=== PATIENT | male | born 1965 | race Caucasian/White ===

== ENCOUNTER 2017-02-19 07:59 | Emergency (ER) | payer OTHER ==
[2017-02-19 08:03] VITALS: RESP 18
[2017-02-19 09:25] LABS: BASO % 0.5 % (0.0-2.0); EOS # 0.5 K/uL (0.0-0.7); EOS % 6.6 % (0.0-4.0); HEMATOCRIT 42.6 % (35.0-51.0); LYMPH % 42.3 % (20.0-40.0); MEAN CELL VOLUME 85.2 fL (80.0-94.0); MEAN CORPUSCULAR HEMOGLOBIN 28.3 pg (27.0-31.0); MEAN CORPUSCULAR HGB CONC 33.2 g/dL (33.0-37.0); MEAN PLATELET VOLUME 8.3 fL (7.2-11.7); MONO # 0.4 K/uL (0.0-0.8); MONO % 5.7 % (0.0-10.0); RED CELL DISTRIBUTION WIDTH 14.5 % (11.5-14.5); WHITE BLOOD COUNT 7.1 K/uL (4.8-10.8)
[2017-02-19 09:30] LABS: CHLORIDE 101 mmol/L (98-107); POTASSIUM 4.3 mmol/L (3.6-5.2); SODIUM 137 mmol/L (132-148)
[2017-02-19 09:32] LABS: GFR AFRICAN-AMERICAN > 60
[2017-02-19 09:33] LABS: ALB/GLOB RATIO 1.4 (1.0-2.1); ALKALINE PHOSPHATASE 67 U/L (38-126); ALT/SGPT 33 U/L (21-72); AST/SGOT 19 U/L (17-59); BILIRUBIN,TOTAL 0.8 mg/dL (0.2-1.3); BLOOD UREA NITROGEN 12 mg/dL (9-20); CARBON DIOXIDE 24 mmol/L (22-30); GLUCOSE,RANDOM 81 mg/dL (75-110); TOTAL PROTEIN 6.9 g/dL (6.3-8.3)
[2017-02-19 09:34] LABS: CALCIUM 8.7 mg/dl (8.6-10.4)
[2017-02-19] MEDS ORDERED: Iodixanol 320 MG/ML 100 ML BOTTLE IV ONE (11:15)
--- NOTE | 2017-02-19 11:29 | C.PDOC ---
History Of Present Illness 51-year-old male presents to the emergency department with complaints of rectal pain and lump in the rectal area which has worsened over the past five weeks. States he was seen by PMD, who prescribed a course of antibiotics two weeks ago. Patient states there has been no improvement. Patient was seen by surgeon Dr Hays yesterday in the office, told him he likely has perirectal abscess. Patient denies fevers, nausea/vomiting, diarrhea, rectal bleeding. PMD Destiny Braun MD. Time Seen by Provider: 02/19/17 08:15 Chief Complaint (Nursing): Abnormal Skin Integrity History Per: Patient History/Exam Limitations: no limitations Onset/Duration Of Symptoms: Days Current Symptoms Are (Timing): Still Present Quality Of Symptoms: Painful Severity: Moderate Past Medical History Reviewed: Historical Data, Nursing Documentation, Vital Signs Vital Signs: Last Vital Signs Temp 97.3 F L 02/19/17 13:04 Pulse 68 02/19/17 13:04 Resp 18 02/19/17 13:04 BP 117/76 02/19/17 13:04 Pulse Ox 99 02/21/17 13:12 - Medical History PMH: No Chronic Diseases Family History: States: No Known Family Hx - Social History Hx Alcohol Use: No Hx Substance Use: No - Immunization History Hx Tetanus Toxoid Vaccination: No Hx Influenza Vaccination: Yes Hx Pneumococcal Vaccination: No Review Of Systems Except As Marked, All Systems Reviewed And Found Negative. Constitutional: Negative for: Fever Cardiovascular: Negative for: Chest Pain Respiratory: Negative for: Cough, Shortness of Breath Gastrointestinal: Positive for: Rectal Pain. Negative for: Nausea, Vomiting, Melena, Hematochezia, Hematemesis Musculoskeletal: Negative for: Back Pain Skin: Negative for: Rash Physical Exam - Physical Exam Appears: Well, Non-toxic, No Acute Distress Skin: Warm, Dry, No Rash Head: Normacephalic Oral Mucosa: Moist Cardiovascular: Rhythm Regular Respiratory: Normal Breath Sounds, No Rales, No Rhonchi, No Wheezing Gastrointestinal/Abdominal: Normal Exam, Bowel Sounds, Soft, No Tenderness Rectal: No Hemorrhoids, Other (At approx 6o'clock: 3cm abscess w/ purulent discharge. Tenderness to palpation, (+) surrounding erythema.) Extremity: Normal ROM Neurological/Psych: Oriented x3 ED Course And Treatment - Laboratory Results Result Diagrams: 02/19/17 09:17 02/19/17 09:17 O2 Sat by Pulse Oximetry: 99 (RA) Pulse Ox Interpretation: Normal - CT Scan/US CT ABD/PELVIS Other Rad Studies (CT/US): Read By Radiologist, Radiology Report Reviewed CT/US Interpretation: Accession No. : [id number]. Patient Name / ID : ELICIA MURILLO / [id number]. Exam Date : 02/19/2017 11:41:39 ( Approved ). Study Comment : Sex / Age : M / 51Y. Creator : Giles Garcia. Dictator : Giles Garcia. Wharf Operator : Internal Sales : Giles Garcia. Approver2 : Report Date : 02/19/2017 12:21:48. My Comment : . PROCEDURE: CT Pelvis with contrast. HISTORY: EVALUATE FOR PERIRECTAL ABSCESS. COMPARISON: None. TECHNIQUE: Contiguous axial images of the pelvis with contrast. Coronal and sagittal reformats generated. This CT exam was performed using one or more of the following dose reduction techniques: Automated exposure control, adjustment of the mA and/or kV according to patient size, and/or use of iterative reconstruction technique. Contrast dose: 100 mL of Visipaque. Radiation dose: Total exam DLP = 280.12 mGy-cm. FINDINGS: BLADDER: Unremarkable. No mass. REPRODUCTIVE ORGANS: Unremarkable. VISUALIZED BOWEL: Scattered colonic diverticulosis are seen without evidence of diverticulitis. The appendix is normal. PERITONEUM: Unremarkable, as visualized. No free fluid. No free air. LYMPH NODES: Unremarkable. No enlarged lymph nodes. VASCULATURE: Unremarkable. BONES: No fracture or focal lesion. OTHER FINDINGS: There are inflammatory changes surrounding the rectum and in the medial aspect of the buttock without evidence of discrete abscess or fluid collection. IMPRESSION: Inflammatory changes surrounding the rectum and medial aspect of the buttock bilaterally without evidence of abscess formation or fluid collection. Colonic diverticulosis without evidence of diverticulitis. No evidence of acute pathology otherwise in the pelvis. Progress Note: Blood work, CT scan pelvis with IV contrast ordered. Patient given IV morphine. Prior to being dicharged, Dr. Longoria came to see patient in ED, requests he be given Clindamycin instead of Bactrim. Rx changed. - Physician Consult Information Physician Contacted: Omi Burrell Outcome Of Conversation: Surgical residents came to evaluate patient at bedside and discussed patient with Dr. Burrell. They drained perirectal abscess at bedside & packed it, recommend Bactrim Rx. Patient to follow up with surgeon in 2 weeks in the office. Disposition Counseled Patient/Family Regarding: Studies Performed, Diagnosis, Need For Followup, Rx Given - Disposition Referrals: Omi Burrell MD [Staff Provider] - Destiny Braun MD [Staff Provider] - Disposition: HOME/ ROUTINE Disposition Time: 13:10 Condition: STABLE Additional Instructions: FOLLOW UP WITH YOUR DOCTOR IN 1-2 DAYS FOLLOW UP WITH DR BURRELL IN TWO WEEKS USE ANTIBIOTICS UNTIL FINISHED RETURN TO ER IF SYMPTOMS WORSEN Prescriptions: Clindamycin [Cleocin] 300 mg PO Q6 #21 cap Acetaminophen with Codeine [Tylenol with Codeine #3 Tablet] 1 each PO Q6 PRN # 15 tablet PRN Reason: pain Instructions: Rectal Abscess (ED) Print Language: KHMER - POA Present On Arrival: None - Clinical Impression Clinical Impression: Perirectal abscess - Scribe Statement The provider has reviewed the documentation as recorded by the Madison Tate All medical record entries made by the Alexisibalexis were at my direction and personally dictated by me. I have reviewed the chart and agree that the record accurately reflects my personal performance of the history, physical exam, medical decision making, and the department course for this patient. I have also personally directed, reviewed, and agree with the discharge instructions and disposition.
--- NOTE | 2017-02-19 12:23 | CT ---
PROCEDURE: CT Pelvis with contrast HISTORY: EVALUATE FOR PERIRECTAL ABSCESS COMPARISON: None. TECHNIQUE: Contiguous axial images of the pelvis with contrast. Coronal and sagittal reformats generated. This CT exam was performed using one or more of the following dose reduction techniques: Automated exposure control, adjustment of the mA and/or kV according to patient size, and/or use of iterative reconstruction technique. Contrast dose: 100 mL of Visipaque. Radiation dose: Total exam DLP = 280.12 mGy-cm. FINDINGS: BLADDER: Unremarkable. No mass. REPRODUCTIVE ORGANS: Unremarkable. VISUALIZED BOWEL: Scattered colonic diverticulosis are seen without evidence of diverticulitis. The appendix is normal. PERITONEUM: Unremarkable, as visualized. No free fluid. No free air. LYMPH NODES: Unremarkable. No enlarged lymph nodes. VASCULATURE: Unremarkable. BONES: No fracture or focal lesion. OTHER FINDINGS: There are inflammatory changes surrounding the rectum and in the medial aspect of the buttock without evidence of discrete abscess or fluid collection IMPRESSION: Inflammatory changes surrounding the rectum and medial aspect of the buttock bilaterally without evidence of abscess formation or fluid collection. Colonic diverticulosis without evidence of diverticulitis. No evidence of acute pathology otherwise in the pelvis.
[2017-02-19] MEDS ORDERED: Lidocaine 1%/Epinephrine 1:100000 30 ml vial IJ STA (12:31)
[2017-02-19] MEDS ORDERED: Lidocaine 2% w Epi 1:100,000 Inj IJ ONE (12:36)
[2017-02-19 13:04] VITALS: BP 117/76; PULSE 68; TEMP 97.3
[2017-02-19 13:08] VITALS: O2SAT 99
[2017-02-19] MEDS ORDERED: Tmp-Smz 800 mg-160 mg DS Tab PO STA (13:08)
[2017-02-19] MEDS ORDERED: Tmp-Smz 800 mg-160 mg DS Tab ONE (13:20)
--- NOTE | 2017-02-19 13:45 | CP.PCM.PN ---
Subjective - Date & Time of Evaluation Date of Evaluation: 02/19/17 Time of Evaluation: 13:42 - Subjective Subjective: See Procedural note Objective - Vital Signs/Intake and Output Vital Signs (last 24 hours): Temp Pulse Resp BP Pulse Ox 97.3 F L 68 18 117/76 99 02/19/17 13:04 02/19/17 13:04 02/19/17 13:04 02/19/17 13:04 02/19/17 13:36 - Labs Labs: 02/19/17 09:17 02/19/17 09:17 PT 11.4 SECONDS (9.7-12.2) 02/19/17 09: INR 1.0 02/19/17 09:17 APTT 30 SECONDS (21-34) 02/19/17 09:17 Incision and Drainage - Time Time Performed: 13:00 - Time Out Time Out: Side verified, Site verified, Patient ID confirmed, Sterile procedures obs. - Procedure Procedure-Incision & Drainage: Incision and Drainage Perirectal abscess - Consent obtained Consent obtained: Written - Performed by Performed by: Mid-level Provider - Indications Indications: Cutaneous abscess - Contraindications Contraindications: None - Location Location: Perirectal abscess - Anesthetic Technique Anesthetic Technique: Local, Intravenous pain meds - Anesthetic Anesthetic: Lidocaine 1% w/epi - Procedure Procedure: Usual prep and drape, cm incision (3), # scalpel used (11), Explored for loculations, Irrigated, Packed with sterile gauze - Drained Drained: ml pus (2) - Post-procedure Post procedure: Dressed - Complications Complications: None - Patient tolerated procedure Patient tolerated procedure: Well
--- NOTE | 2017-02-21 12:51 | CP.PCM.CON ---
<Tony Simpson - Last Filed: 02/21/17 12:45> History of Present Illness - History of Present Illness History of Present Illness: General Surgery Consult done on 02/19/17 Re: Perirectal abscess HPI: 51M presented to ED C/O worsening rectal pain x 5 weeks. Pt has had a lump in the rectal area that drains pus and then fills up again. He was seen by his PMD who gave him Abx 2 weeks ago with minimal relief. Pt was seen by Dr Wells yesterday, who told him that he has a probable rectal abscess. Denies F/C, N/V/D, BRBPR or any other symptoms. PMH: DM PSH: Denies SH: + tobacco use, denies EtOH and drug use All: NKDA Meds: Metformin Review of Systems - Review of Systems All systems: reviewed and no additional remarkable complaints except (as per HPI ) Past Patient History - Infectious Disease Hx of Infectious Diseases: None - Past Social History Smoking Status: Light Smoker < 10 Cigarettes Daily - ENDOCRINE/METABOLIC Hx Diabetes Mellitus Type 2: Yes - PSYCHIATRIC Hx Substance Use: No - SURGICAL HISTORY Hx Surgeries: No - ANESTHESIA Hx Anesthesia: No Meds Home Medications: Home Medication List Medication Instructions Recorded Confirmed Type Acetaminophen with Codeine 1 each PO Q6 PRN #15 tablet 02/19/17 Rx [Tylenol with Codeine #3 Tablet] Clindamycin [Cleocin] 300 mg PO Q6 #21 cap 02/19/17 Rx Allergies/Adverse Reactions: Allergies Allergy/AdvReac Type Severity Reaction Status Date / Time No Known Allergies Allergy Verified 02/19/17 08:04 Physical Exam - Constitutional Appears: Non-toxic, No Acute Distress - Head Exam Head Exam: ATRAUMATIC, NORMOCEPHALIC - Eye Exam Eye Exam: EOMI. absent: Scleral icterus - ENT Exam ENT Exam: Mucous Membranes Moist Additional comments: trachea midline - Respiratory Exam Respiratory Exam: NORMAL BREATHING PATTERN. absent: Respiratory Distress - Cardiovascular Exam Cardiovascular Exam: RRR, +S1, +S2 - GI/Abdominal Exam GI & Abdominal Exam: Soft. absent: Tenderness - Rectal Exam Additional comments: posterior midline bump with TTP and draining pus - Extremities Exam Extremities exam: Negative for: calf tenderness, pedal edema - Back Exam Back exam: absent: CVA tenderness (L), CVA tenderness (R) - Neurological Exam Neurological exam: Alert, Oriented x3 - Psychiatric Exam Psychiatric exam: Normal Affect, Normal Mood - Skin Skin Exam: Dry, Warm Results - Vital Signs Recent Vital Signs: Last Vital Signs Temp 97.3 F L 02/19/17 13:04 Pulse 68 02/19/17 13:04 Resp 18 02/19/17 13:04 BP 117/76 02/19/17 13:04 Pulse Ox 99 02/19/17 13:36 - Labs Result Diagrams: 02/19/17 09:17 02/19/17 09:17 - Imaging and Cardiology CT scan - pelvis Status: Image reviewed by me, Report reviewed by me Assessment & Plan - Assessment and Plan (Free Text) Assessment: 51M with perirectal abscess Plan: I&D at bedside, see other note PO abx Remove packing tomorrow Ok to shower tomorrow. F/U with Dr. Wells in 2 weeks D/W Dr. Russell Simpson PGY3 <Omi Wells B - Last Filed: 02/21/17 13:23> Results - Vital Signs Recent Vital Signs: Last Vital Signs Temp 97.3 F L 02/19/17 13:04 Pulse 68 02/19/17 13:04 Resp 18 02/19/17 13:04 BP 117/76 02/19/17 13:04 Pulse Ox 99 02/21/17 13:12 - Labs Result Diagrams: 02/19/17 09:17 02/19/17 09:17 Attending/Attestation - Attestation I have personally seen and examined this patient.: Yes I have fully participated in the care of the patient.: Yes I have reviewed all pertinent clinical information: Yes Notes (Text): 02/21/17 13:22 Pt was seen and examined at bedside on 02/19/17 Agree with above note and assessment. Pt with Perianal abscess I & D at bedside Consent Plan d.w pt in detail Risk and benefit explained in detail.
--- NOTE | 2017-02-22 11:18 | OP ---
PROCEDURE DATE: 02/19/2017 SURGEON: Omi Wells M.D. COMPUTER FORENS[employer] EXAMINER: Tony Simpson, PGY-3 resident. PREOPERATIVE DIAGNOSIS: Perianal abscess POSTOPERATIVE DIAGNOSIS: Perianal abscess PROCEDURE DONE: I & D of Perianal abscess ANESTHESIA: Local anesthesia. ESTIMATED BLOOD LOSS: Around 5 mL. DRAINS: None. PATHOLOGY: The pus was sent for the culture and sensitivity. COMPLICATIONS: None. INTRAOPERATIVE FINDINGS: The patient had approximately 2 x 2 cm perianal abscess. INTRAOPERATIVE STEPS: This 51-year-old male who was diagnosed with a perianal abscess and patient was presented in the ER after presenting in the office yesterday. The patient had a CT scan and patient was consented for incision and drainage. The patient was placed in the left lateral decubitus position. Perianal area was inspected and abscess was drained. After cruciate shaped incision, the pus was drained. The pus was sent for the culture and sensitivity and wound was irrigated and packed and dry sterile dressing was applied. This patient tolerated the procedure well. Count of instruments and gauze was correct. There was no apparent complication. Omi Wells MD cc: [id number] TT: 02/21/2017 13:57:14 ks 02/22/2017 10:17:01 LULÚ
== END 2017-02-19 13:17 | disposition home or self-care (01) ==
LOC: C.ER 07:59
DX: K61.1 Rectal abscess (principal); B96.20 Unspecified Escherichia coli [E. coli] as the cause of diseases classified elsewhere
CPT/HCPCS: 10060; 72193; 80053; 85025; 85610; 85730; 86850; 86900; 87040; 87070; 87181; 96374; 96376; 99284; J2270; Q9967

== ENCOUNTER 2017-04-12 06:36 | Day surgery (SDC) | payer OTHER ==
[2017-04-12 07:04] VITALS: BMI 24.5
[2017-04-12] MEDS ORDERED: Propofol 10 mg/ml Inj (20 ML) ONE ×2 (08:58)
[2017-04-12 09:35] VITALS: TEMP 97.9
[2017-04-12 10:15] VITALS: O2SAT 100
[2017-04-12 10:18] VITALS: BP 101/71; PULSE 70; RESP 13
== END 2017-04-12 10:35 | disposition home or self-care (01) ==
LOC: C.ENDO 06:36
PROVIDERS: ATTEND Internal Medicine Gastroenterology
DX: Z12.11 Encounter for screening for malignant neoplasm of colon (principal); D12.3 Benign neoplasm of transverse colon; D12.4 Benign neoplasm of descending colon; D12.7 Benign neoplasm of rectosigmoid junction; K64.8 Other hemorrhoids
CPT/HCPCS: 45380; 45385; 82948; 88305; J2704